=== PATIENT | male | born 1990 | race Caucasian/White ===

== ENCOUNTER → 2016-06-16 | Outpatient (CLI) | payer BC, OTHER ==
--- NOTE | 2016-06-19 11:08 | SLEEPHOME ---
DATE OF PROCEDURE: 06/16/2016 ORDERED BY: MARILIN Arora Diagnostic home sleep testing was performed due to concern for the obstructive sleep apnea syndrome in this patient with a history of excessive somnolence and nonrestorative sleep. For testing, a NOX-T3 respiratory monitoring device was utilized. Continuous record was made of pulse, oxygen saturation, airflow, chest and abdominal strain, and body position. 9 hours and 59 minutes of data were reviewed. Of these, 6 hours and 41 were marked as time in bed. During the interval marked time in bed, there were 105 respiratory events identified of 10 seconds in duration or greater for a respiratory event index of 15.7. The events were primarily obstructive. Baseline pulse rate 74 beats per minute. Pulse rate ranged 47-110. Baseline oxygen saturation 92%. Lowest oxygen saturation 73%. Testing was performed in both the supine and non-supine positions. IMPRESSION: Abnormal home sleep testing with repetitive respiratory events and oxygen desaturation to 73% with a respiratory event index of 15.7 is consistent with the obstructive sleep apnea syndrome. In light of the significant oxygen desaturations, referral for a formal in-laboratory pressure titration is recommended.
== END ==
LOC: M SLEEP HO 12:03
PROVIDERS: ATTEND Nurse Practitioner Adult Health
DX: G47.30 Sleep apnea, unspecified (principal)

== ENCOUNTER → 2018-10-19 | Outpatient (REF) | payer BC, OTHER | LOC: M SMT 13:23 | PROVIDERS: ATTEND Urology | DX: N46.9 Male infertility, unspecified (principal) ==

== ENCOUNTER → 2018-12-19 | Outpatient (REF) | payer BC, OTHER ==
[2018-12-19 16:22] LABS: SEMEN APPEARANCE OPAQUE (OPAQUE); SEMEN VISCOSITY VISCOUS (LIQUID); SEMEN VOLUME 2.5 ml (2.0-5.0); SEMEN pH 7.5 (7.0-8.0)
[2018-12-19 16:23] LABS: WBC CONCENTRATION >1 M/ml (<=1 M/ml)
== END ==
LOC: M LAB REF 12:53
PROVIDERS: ATTEND Urology
DX: N46.9 Male infertility, unspecified (principal)

== ENCOUNTER → 2021-07-18 | Outpatient (CLI) | payer OTHER | LOC: M RAD 16:08 | PROVIDERS: ATTEND Physician Assistant | DX: M25.562 Pain in left knee (principal) ==

== ENCOUNTER 2021-12-22 16:10 | Emergency (ER) | payer OTHER ==
[~2021-12-22] VITALS: Ht 172.7 cm; Wt 99.2 kg
[2021-12-22] MEDS ORDERED: LIDOCAINE 2% MDV 20ML VIAL SC ONE (19:35)
[2021-12-22] MEDS ORDERED: CEPH500C PO (20:04)
[2021-12-22] MEDS ORDERED: NEOSPORIN OINT 0.9 GM PKT TOP ONE (20:05)
[2021-12-22] MEDS ORDERED: CEPHALEXIN 500 MG CAP PO ONE (20:05)
[2021-12-22] MEDS ORDERED: BOOSTRIX/ADACEL VACCINE (DIPHTH/PERTUSS/ACELL/TETANUS) 0.5ML SYR IM.IMMUN ONE (20:05)
[2021-12-22 20:18] VITALS: BP 128/80
== END 2021-12-22 20:32 | disposition home or self-care (01) ==
LOC: M ED 16:10
DX: S61.213A Laceration without foreign body of left middle finger without damage to nail, initial encounter (principal); W23.0XXA Caught, crushed, jammed, or pinched between moving objects, initial encounter; G47.33 Obstructive sleep apnea (adult) (pediatric); Z88.8 Allergy status to other drugs, medicaments and biological substances; Y92.009 Unspecified place in unspecified non-institutional (private) residence as the place of occurrence of the external cause; Y93.9 Activity, unspecified; Y99.9 Unspecified external cause status

== ENCOUNTER → 2023-02-24 | Outpatient (CLI) | payer OTHER ==
[~2023-02-24] MED LIST: CEPH500C PO
[2023-02-24 10:50] LABS: BASO # 0.1 10^3/uL (0.0-0.2); BASO % 0.8 % (0.0-1.0); EOS # 0.3 10^3/uL (0.0-0.5); EOS % 5.5 % (0.0-3.0); HEMATOCRIT 39.5 % (42.0-52.0); HEMOGLOBIN 13.2 g/dl (13.5-17.5); LYMPH # 1.9 10^3/uL (1.5-5.0); LYMPH % 31.5 % (24.0-44.0); MEAN CORPUSCULAR HEMOGLOBIN 29.9 pg (27.0-33.0); MEAN CORPUSCULAR HGB CONC 33.4 g/dl (32.0-36.5); MEAN CORPUSCULAR VOLUME 89.4 fl (80.0-96.0); MONO # 0.6 10^3/uL (0.0-0.8); MONO % 8.9 % (2.0-8.0); NEUTROPHILS # 3.3 10^3/uL (1.5-8.5); NEUTROPHILS % 53.1 % (36.0-66.0); PLATELET COUNT, AUTOMATED 249 10^3/uL (150-450); RED BLOOD COUNT 4.42 10^6/uL (4.30-6.10); WHITE BLOOD COUNT 6.2 10^3/uL (4.0-10.0)
[2023-02-24 11:14] LABS: HEMOGLOBIN A1c 4.5 % (4.0-6.0)
[2023-02-24 11:39] LABS: ALBUMIN 4.2 G/DL (3.2-5.2); ALKALINE PHOSPHATASE 49 U/L (46-116); ALT/SGPT 31 U/L (7.0-40); AST/SGOT 20 U/L (<34); BILIRUBIN,TOTAL 0.6 MG/DL (0.3-1.2); BLOOD UREA NITROGEN 15 MG/DL (9-23); CARBON DIOXIDE LEVEL 30 MMOL/L (20-31); CHLORIDE LEVEL 104 MMOL/L (98-107); CHOLESTEROL LEVEL 226 MG/DL (<200); CHOLESTEROL RISK RATIO 5.48 (<5); CREATININE FOR GFR 0.97 MG/DL (0.70-1.30); GLOMERULAR FILTRATION RATE > 60.0 (>60); GLUCOSE, FASTING 80 MG/DL (60-100); HDL CHOLESTEROL 41.2 MG/DL (>40); NON-HDL-C 184.8 MG/DL; POTASSIUM SERUM 4.3 MMOL/L (3.5-5.1); SODIUM LEVEL 141 MMOL/L (136-145); TOTAL PROTEIN 7.4 G/DL (5.7-8.2); TRIGLYCERIDES LEVEL 179 MG/DL (<150)
[2023-02-24 11:44] LABS: FREE T4 1.01 NG/DL (0.89-1.76)
[2023-02-24 11:46] LABS: THYROID STIMULATING HORMONE 2.441 uIU/ML (0.55-4.78)
[2023-02-24 11:47] LABS: TOTAL 25(OH) VITAMIN D 17.5 NG/ML (20.0-100.0)
== END ==
LOC: M WUC 08:31
PROVIDERS: ATTEND Physician Assistant
DX: Z13.29 Encounter for screening for other suspected endocrine disorder (principal); Z13.220 Encounter for screening for lipoid disorders; G47.33 Obstructive sleep apnea (adult) (pediatric)

== ENCOUNTER → 2023-06-01 | Outpatient (CLI) | payer OTHER ==
[2023-06-01 10:23] LABS: BASO # 0.1 10^3/uL (0.0-0.2); BASO % 0.8 % (0.0-1.0); EOS # 0.5 10^3/uL (0.0-0.5); EOS % 6.5 % (0.0-3.0); HEMATOCRIT 38.5 % (42.0-52.0); HEMOGLOBIN 13.2 g/dl (13.5-17.5); LYMPH # 2.8 10^3/uL (1.5-5.0); LYMPH % 38.1 % (24.0-44.0); MEAN CORPUSCULAR HEMOGLOBIN 30.1 pg (27.0-33.0); MEAN CORPUSCULAR HGB CONC 34.3 g/dl (32.0-36.5); MEAN CORPUSCULAR VOLUME 87.9 fl (80.0-96.0); MONO # 0.6 10^3/uL (0.0-0.8); MONO % 8.4 % (2.0-8.0); NEUTROPHILS # 3.4 10^3/uL (1.5-8.5); NEUTROPHILS % 45.9 % (36.0-66.0); PLATELET COUNT, AUTOMATED 249 10^3/uL (150-450); RED BLOOD COUNT 4.38 10^6/uL (4.30-6.10); WHITE BLOOD COUNT 7.4 10^3/uL (4.0-10.0)
[2023-06-01 10:54] LABS: VITAMIN B12 LEVEL 365 PG/ML (211-911)
[2023-06-01 10:56] LABS: ALBUMIN 4.1 G/DL (3.2-5.2); ALKALINE PHOSPHATASE 47 U/L (46-116); ALT/SGPT 42 U/L (7.0-40); AST/SGOT 21 U/L (<34); BILIRUBIN,TOTAL 0.4 MG/DL (0.3-1.2); BLOOD UREA NITROGEN 12 MG/DL (9-23); CALCIUM LEVEL 9.3 MG/DL (8.5-10.1); CARBON DIOXIDE LEVEL 29 MMOL/L (20-31); CHLORIDE LEVEL 108 MMOL/L (98-107); CHOLESTEROL LEVEL 127 MG/DL (<200); CHOLESTEROL RISK RATIO 3.26 (<5); CREATININE FOR GFR 0.95 MG/DL (0.70-1.30); FOLATE 22.13 NG/ML (>5.4); GLOMERULAR FILTRATION RATE > 60.0 (>60); GLUCOSE, FASTING 87 MG/DL (60-100); HDL CHOLESTEROL 38.9 MG/DL (>40); IRON (FE) 66 UG/DL (65-175); LDL CHOLESTEROL 66.1 MG/DL (<100); NON-HDL-C 88.1 MG/DL; PERCENT SATURATION 22.1 % (19.7-50.0); POTASSIUM SERUM 4.5 MMOL/L (3.5-5.1); SODIUM LEVEL 142 MMOL/L (136-145); TOTAL 25(OH) VITAMIN D 38.8 NG/ML (20.0-100.0); TOTAL IRON BINDING CAPACITY 298 UG/DL (250-425); TRIGLYCERIDES LEVEL 110 MG/DL (<150)
[2023-06-01 10:57] LABS: FERRITIN 106.2 NG/ML (10.5-307.3)
== END ==
LOC: M WUC 08:31
PROVIDERS: ATTEND Family Medicine
DX: E78.00 Pure hypercholesterolemia, unspecified (principal); E55.9 Vitamin D deficiency, unspecified; D64.9 Anemia, unspecified

== ENCOUNTER 2025-01-07 13:35 | Emergency (ER) | payer OTHER ==
[~2025-01-07] VITALS: Ht 172.7 cm; Wt 97.2 kg
[2025-01-07] MEDS ORDERED: IBUP600T42 PO (15:16)
[2025-01-07] MEDS ORDERED: AMOX875T2 PO (15:16)
[2025-01-07 15:18] VITALS: BP 127/74; TEMP 97.6; O2SAT 100
== END 2025-01-07 15:22 | disposition home or self-care (01) ==
LOC: M ED 13:35
DX: K08.89 Other specified disorders of teeth and supporting structures (principal); G47.33 Obstructive sleep apnea (adult) (pediatric); Z79.1 Long term (current) use of non-steroidal anti-inflammatories (NSAID); Z79.2 Long term (current) use of antibiotics; Z88.2 Allergy status to sulfonamides